=== PATIENT | male | born 1935 | race Caucasian/White ===

== ENCOUNTER 2021-04-06 11:36 | Inpatient (IN) | payer MEDICARE, BC ==
[~2021-04-06] VITALS: Ht 177.8 cm; Wt 84.8 kg
[2021-04-06 11:54] VITALS: BP 115/61
[2021-04-06] MEDS ORDERED: LEVOTHYROXINE88 MC1 PO (11:57)
[2021-04-06] MEDS ORDERED: ZETIA10 MG PO (11:57)
[2021-04-06] MEDS ORDERED: NAMZARIC 7 MG-1 EACH PO (11:58)
[2021-04-06] MEDS ORDERED: GEMFIBROZIL 60600 MG PO (11:58)
[2021-04-06] MEDS ORDERED: ASA81BEC PO (11:58)
[2021-04-06] MEDS ORDERED: ALLOPURINOL 10100 M1 PO (11:58)
[2021-04-06 12:49] LABS: HEMATOCRIT 43.8 % (42.0-52.0); HEMOGLOBIN 14.7 gm/dL (14.0-18.0); MCH 30.2 pg (26.0-34.0); MCHC 33.5 g/dL (28.0-37.0); MCV 90.2 fL (80.0-100.0); MPV 9.5 fl. (7.2-11.1); RBC 4.85 mil/uL (4.50-6.00); RDW-CV 14.2 % (10.5-14.5); WBC 5.4 thou/uL (4.0-11.0)
[2021-04-06 12:54] LABS: CALCIUM 8.3 mg/dL (8.5-10.1); CREATININE 1.5 mg/dL (0.6-1.3); POTASSIUM 4.2 mmol/L (3.5-5.1)
[2021-04-06 13:12] LABS: URINE BILIRUBIN NEGATIVE (Negative); URINE BLOOD 1+ (Negative); URINE CLARITY CLEAR; URINE COLOR YELLOW; URINE GLUCOSE-RANDOM NEGATIVE (Negative); URINE KETONES TRACE (Negative); URINE LEUKOCYTES-REFLEX NEGATIVE (Negative); URINE NITRITE-REFLEX NEGATIVE (Negative); URINE PROTEIN TRACE (Negative); URINE SPECIFIC GRAVITY >= 1.030 (1.005-1.030); URINE UROBILINOGEN 0.2 E.U./dl (0.2-1.0)
[2021-04-06 13:27] LABS: SQUAMOUS 0-3 Few /LPF (0-3)
[2021-04-06 13:28] LABS: BACTERIA-REFLEX 1-9 Few /HPF (None Seen); CASTS None Seen /LPF (None Seen); CRYSTALS None Seen /LPF (None Seen); MUCUS 0-3 Light strn/LPF (None Seen); URINE RBC None Seen /HPF (0-2); URINE WBC-REFLEX None Seen /HPF (0-5)
[2021-04-06 15:42] VITALS: BP 118/62
[2021-04-06 17:19] VITALS: BP 126/64
--- NOTE | 2021-04-06 18:34 | NUR ---
Assummed care at 1600. Pt is alert and oriented to self only. Pt is pleasantly confused. Assessment done and charted. Pt was made comfortable. No respiratory distress. Will continue to provide care.
[2021-04-06 20:25] VITALS: BP 105/64
[2021-04-06 20:30] VITALS: BP 105/64
[2021-04-07] VITALS: BP 101/61
[2021-04-07 04:00] VITALS: BP 105/59
--- NOTE | 2021-04-07 05:05 | NUR ---
PT SLEPT ON AND OFF OVERNIGHT. HAS DENIED COMPLAINTS. O2 2L. TELE SR. INCONTINENT URINE OVERNIGHT, CHARLES CARE GIVEN. PT TURNED AND REPOSITIONED Q2 HOURS AND PRN FOR SKIN CARE AND COMFORT, MOVES ABOUT IN BED INDEP. RFA SL IV. YOU CALL MD SENT TO AT START OF SHIFT REGARDING MEDICATIONS. NO NEW ORDERS OVERNIGHT. SPOKE TO DTR YANIRA TWICE THIS SHIFT TO GET HOME MEDS AND GIVE UPDATES ON PT. REMAINS ON ENHANCED PRECAUTIONS. AO TO SELF AND SITUATION. CALL LITE IN EASY REACH, BED ALARM ON FOR SAFETY.
[2021-04-07 08:00] VITALS: BP 116/53
[2021-04-07 11:19] LABS: CALCIUM 8.7 mg/dL (8.5-10.1); CREATININE 1.4 mg/dL (0.6-1.3); POTASSIUM 3.4 mmol/L (3.5-5.1)
[2021-04-07 11:22] LABS: MAGNESIUM 2.3 mg/dL (1.8-2.4); PHOSPHORUS* 2.9 mg/dL (2.5-4.9)
[2021-04-07 12:33] VITALS: BP 123/67
[2021-04-07 17:21] VITALS: BP 101/60
[2021-04-07 19:45] VITALS: BP 127/70
[2021-04-08 00:49] VITALS: BP 95/53
--- NOTE | 2021-04-08 03:36 | NUR ---
ASSUMED CARE OF PT AT 1900. PT IS ALERT X'S. VSS. HALEY. NO COMPLAINTS OF PAIN. PT IS IN SINUS RYTHM. PT IS SLEEPING COMFORTABLY IN BED. RESPIRATIONS ARE EVEN AND NONLABORED. WILL CONTINUE TO MONITOR PT.
[2021-04-08 04:00] VITALS: BP 97/61
[2021-04-08 08:00] VITALS: BP 117/58
[2021-04-08] MEDS ORDERED: DECADRON6 MG PO (09:41)
[2021-04-08] MEDS ORDERED: CEFDINIR300 MG PO (09:44)
[2021-04-08 12:00] VITALS: BP 105/65
[2021-04-08 16:00] VITALS: BP 117/67
[2021-04-08 20:30] VITALS: BP 111/59
[2021-04-09 00:45] VITALS: BP 105/73
[2021-04-09 04:47] VITALS: BP 119/77; BP 131/57
[2021-04-09 08:00] VITALS: BP 129/72
[2021-04-09 12:12] VITALS: BP 119/65
[2021-04-09 17:48] VITALS: BP 103/57
--- NOTE | 2021-04-09 19:14 | NUR ---
CM ASSESSMENT ASSESSMENT COMPLETED WITH PT'S DAUGHTER, YANIRA BENTLEY ([phone]). [facility] PT LIVED ALONE. PT'S DAUGHTER VISITING OFTEN. PT'S DAUGHTER AND SON HAVE POA. PT HAS NO HISTORY OF DME OR ADLS SUPPORT. PT HAS NO HSITROY OF SKILLED, HH, OR REHAB SERVICES. PROVIDER NOTE INDICATES DC PLAN BETWEEN SKILLED SERVICES AND HH. PT AND DAUGHTER AGREEABLE TO SKILLED. SKILLLED COVID UNIT SOUGHT. ONE LOCATION AVAILABLE APPROX ONE HOUR FROM [place]. DAUGHTER ATTMEPTING TO CONTACT HER BROTHER TO ARRANGE PRIVATE DUTY FOR PT AND SEEKING HH WITH PRIVATE DUTY SUPPORT. CM TO FOLLOWUP.
--- NOTE | 2021-04-09 20:40 | NUR ---
I ASSUMED CARE OF THE PATIENT AT 0700. PATIENT IS ALERT AN ORIENTED TO PERSON. BED IS IN THE LOW LOCKED POSITION AND CALL LIGHT IS IN REACH. PAIN IS DENIED. HOURLY ROUNDING IS COMPLETED AND PATIENT NEEDS ARE MET. HE WILL DISCHARGE WHEN A SNF IS WILLING TO ACCEPT A COVID PATIENT. BED ALARM IS ON, PATIENT IS IMPULSIVE. CERTIFIED PEST CONTROL TECHNICIAN IS IN PLACE AND HE IS TITRATED TO ROOM AIR. WILL CONTINUE TO MONITOR.
[2021-04-10 00:59] VITALS: BP 126/69
[2021-04-10 04:35] VITALS: BP 134/49
--- NOTE | 2021-04-10 05:29 | NUR ---
PT AO X1-2 AND REPORTS CONTINUED FATIGUE AND WEAKNESS. HE HAS RUN A LOW GRADE FEVER THIS PM SHIFT FOR WHICH TYLENOL WAS GIVEN AT 2200 AND TEMP ELEVATED AT 0400 AGAIN. PT ON ROOM AIR SATTING >90%. PT REPORTING BACK PAIN FOR WHICH TYLENOL WAS GIVEN. PT BED ALARM ON AND CALL LIGHT IN REACH FOR PT SAFETY
[2021-04-10 07:45] VITALS: BP 128/62
[2021-04-10] MEDS ORDERED: DEXAMETHASONE 22 M1 PO (10:38)
[2021-04-10 12:19] VITALS: BP 114/61
--- NOTE | 2021-04-10 16:00 | NUR ---
Received call from that patient's son (Lei) wants to appeal the patients discharge to SNF. Per , son wants to speak to a hospital director and a physician. LANDRY Palencia reached out to son to discuss concerns. Per son, he doesn't feel like patient is medically stable to discharge. His concerns are as followed; patient continues to have fevers on and off, patient cannot walk and is too debilitated to transfer out and son doesn't like the idea of sending patient to a SNF that is 1 hour away from family. Per son, patient has dementia and gets easily confused in new environments and he wants to ensure patient will be safe despite the inability of family to be present. Per son, most of family (including son/Lei), tested positive for Covid. Son is also upset that he has not talked to a doctor since Friday 04/06 and is upset that the only people he has talked to is a nurse when he calls and case management. Advised son that fevers are well controlled now, per physician and nursing. Patient has been up to walk. Patient walked 120ft with PT and the reason the SNF is so far is due to current COVID diganosis and [facility] ([facility], [place]) is the only facility willing to take a current positive COVID patient. Advised that patient is medically stable to dc pending dc dispo. Son still uphappy and wants to speak to a physician. Physician notified. Advised son that other options for dc, include home with private duty and HH (if they can accept Covid + patients), ARU (if they accept COVID + patients) or trying more SNF's, however a decision for dc plans will need to be finalized as soon as possible given patients medical clearance for dc. Son understands, but state he will appeal dc pending other possible options. LANDRY Palencia to follow up with above options tomorrow and will work with son and patient for a safe dc plan. CM to continue to follow
[2021-04-10 16:20] VITALS: BP 107/73
--- NOTE | 2021-04-10 16:59 | NUR ---
CM FOLLOWUP PT MEDCIALLY CLEAR TO DC. PT'S FAMILY NOT OPEN TO REFERRAL TO [facility] DUE TO THE DISTANCE FROM HOME ([facility] ONLY FACILITY WILLING TO TAKE COVID) PT TO BE DC WITH 24 HOURS SUPPORT AND HH. [place] NOT ABLE TO PROVIDE CAREGIVING PD SERVICES WHILE PT COVID POSITIVE. PT'S FAMILY TENTATIVE ABOUT ABILITY TO PROVIDE CARE FOR PT DUE TO COVID STATUS. PT'S CHILDREN (JAZLYN GONZALEZ [phone] AND YANIRA BENTLEY [phone]) SEEKING TO HAVE PT REMAIN AT [facility]. CM TO EXPLORE OTHER PD RESOURCES UNLESS FAMILY AGREEABLE TO [facility].
--- NOTE | 2021-04-10 18:21 | NUR ---
ASSUMED CARE AT 0730. PT IS ALERT AND ORIENTED TO SELF ONLY. ASSESSMENT DONE. PT IS PLEASANTLY CONFUSED. PT SAT IN THE FOR LUNCH AND DINNER. CALL LIGHT WITH IN REACH. WILL CONTINUE TO PROVIDE CARE.
[2021-04-10 22:00] VITALS: BP 134/60
[2021-04-11 00:14] VITALS: BP 111/62
[2021-04-11 04:00] VITALS: BP 95/46
[2021-04-11 08:00] VITALS: BP 111/61
--- NOTE | 2021-04-11 11:30 | NUR ---
LANDRY Palencia reached out to other SNF facilities that accept COVID positive patients and [facility] and they have accepted patient and can take patient today pending decision of son/Bill. Reached out to [facility], [facility] and [facility] No response from [facility]. [facility] stated they cannot accept patient until 10 days post positive COVID test, which would be Monday 04/16. [facility] doctor will not see patients on COVID unit, patient cannot go to ARU until 10 days post positive COVID test and staffing is a concern. LANDRY Palencia reached out to 10 private duty companies. Of the 10, only 1 ([employer]) can accept COVID positive patients, however they are short staffed until Monday 04/16 due to the holiday weekend. LANDRY Palencia called Lei back and shared the above information. Lei agreeable to go to SNF at [facility] but wants to speak to facility, look at reviews online and discuss with patients dtr (Polina). LANDRY Palencia awaiting response from Lei at this time.
[2021-04-11 12:00] VITALS: BP 111/61
[2021-04-11 13:15] LABS: RDW-CV 13.9 % (10.5-14.5)
[2021-04-11 13:17] LABS: HEMATOCRIT 45.8 % (42.0-52.0); HEMOGLOBIN 15.7 gm/dL (14.0-18.0); MCH 30.1 pg (26.0-34.0); MCHC 34.4 g/dL (28.0-37.0); MCV 87.7 fL (80.0-100.0); MPV 9.6 fl. (7.2-11.1); NUCLEATED RBCS 0 /100WBC; PLATELET COUNT* 231 thou/uL (150-400); RBC 5.23 mil/uL (4.50-6.00); WBC 11.1 thou/uL (4.0-11.0)
[2021-04-11 13:43] LABS: ALBUMIN 2.9 g/dL (3.4-5.0); CALCIUM 8.4 mg/dL (8.5-10.1); CREATININE 1.3 mg/dL (0.6-1.3); TOTAL BILIRUBIN 0.4 mg/dL (<0.1-1.0); TOTAL PROTEIN 7.4 g/dL (6.4-8.2)
[2021-04-11 14:19] LABS: ABSOLUTE LYMPHOCYTES 0.6 thou/uL (0.8-5.3); ABSOLUTE MONOCYTES 0.4 thou/uL (0.0-1.2)
[2021-04-11 14:20] LABS: PLATELET ESTIMATE ADEQUATE
[2021-04-11 14:29] LABS: ABSOLUTE NEUTROPHILS 10.1 thou/uL (1.6-8.1)
--- NOTE | 2021-04-11 14:37 | NUR ---
Received call back from Bill/son who confirmed he is agreeable to send patient [facility]aitly[facility] today. CM Dir called [facility] back and spoke to Dannielle (account liaison). Per Dannielle, patient can be picked by their facilities transportation [facility] (w/c [employer]) btw [phone]. CM Dir faxed dc summary/orders to [phone]. CM Dir updated nursing and provided facility name and nurse report line. Chart to be copied by nursing. Nurse to update patient. SW and physician updated on plan of care. Brother in law to visit patient until rest of family cleared of COVID precautions. [facility] ([facility]) [address] [place] [phone] (Ph # and nurse report line) Dannielle P:[phone]/F: [phone] No other CM needs noted at this time. Patient stable for dc.
[2021-04-11 16:00] VITALS: BP 115/59
== END 2021-04-11 19:36 | DRG 177 ==
LOC: M.ERS 11:36 → M.ORTHSURG 13:55 → M.TBA-ER 13:55 → M.ORTHSURG 15:52
PROVIDERS: Emergency Medicine Emergency Medical Services; Internal Medicine; ADMIT Internal Medicine; ATTEND Internal Medicine
DX: U07.1 COVID-19 (principal); J96.01 Acute respiratory failure with hypoxia; J12.82 Pneumonia due to coronavirus disease 2019; F03.90 Unspecified dementia, unspecified severity, without behavioral disturbance, psychotic disturbance, mood disturbance, and anxiety; E03.9 Hypothyroidism, unspecified; R32 Unspecified urinary incontinence